=== PATIENT | male | born 1995 | race African-American/Black ===

== ENCOUNTER 2022-02-02 11:51 | Emergency (ER) | payer MEDICAID ==
[~2022-02-02] VITALS: Ht 180.3 cm; Wt 87.0 kg
[2022-02-02 11:59] VITALS: BP 140/60
[2022-02-02] MEDS ORDERED: KETOROLAC 60MG/2ML VIAL IM ONE (13:45)
[2022-02-02] MEDS ORDERED: NAPR-681 MT (14:52)
== END 2022-02-02 15:19 | disposition home or self-care (01) ==
LOC: ER 14:12
DX: M25.562 Pain in left knee (principal); X50.1XXA Overexertion from prolonged static or awkward postures, initial encounter; Y93.89 Activity, other specified; Y92.89 Other specified places as the place of occurrence of the external cause
CPT/HCPCS: 73562; 96372; 99283; J1885

== ENCOUNTER 2022-11-24 12:28 | Emergency (ER) | payer MEDICAID ==
[~2022-11-24] VITALS: Ht 180.3 cm; Wt 82.0 kg
[~2022-11-24 12:28] MED LIST: NAPR-681 MT
[2022-11-24 12:47] VITALS: BP 152/82
[2022-11-24] MEDS ORDERED: CARB15DR EACHEYE (13:38)
[2022-11-24] MEDS ORDERED: VALA100044 MT (13:38)
[2022-11-24] MEDS ORDERED: P50 MT (13:38)
== END 2022-11-24 14:45 | disposition home or self-care (01) ==
LOC: ER 12:28
DX: G51.0 Bell's palsy (principal); R53.1 Weakness; R20.0 Anesthesia of skin
CPT/HCPCS: 99283

== ENCOUNTER 2023-02-20 09:36 | Emergency (ER) | payer MEDICAID ==
[~2023-02-20] VITALS: Ht 182.9 cm; Wt 90.0 kg
[~2023-02-20 09:36] MED LIST changes: +CARB15DR EACHEYE; +P50 MT; +VALA100044 MT
[2023-02-20 09:44] VITALS: BP 126/71
[2023-02-20] MEDS ORDERED: CEPH500C2 MT (12:33)
== END 2023-02-20 12:45 | disposition home or self-care (01) ==
LOC: ER 09:36
DX: S50.861A Insect bite (nonvenomous) of right forearm, initial encounter (principal); W57.XXXA Bitten or stung by nonvenomous insect and other nonvenomous arthropods, initial encounter; Y93.89 Activity, other specified; Y92.89 Other specified places as the place of occurrence of the external cause; Y99.8 Other external cause status
CPT/HCPCS: 99284

== ENCOUNTER 2023-04-15 14:38 | Emergency (ER) | payer MEDICAID ==
[~2023-04-15] VITALS: Ht 182.9 cm; Wt 88.0 kg
[~2023-04-15 14:38] MED LIST changes: +CEPH500C2 MT
[2023-04-15 14:43] VITALS: BP 112/68; TEMP 97.9; O2SAT 100
[2023-04-15 14:45] VITALS: PULSE 76; RESP 18
[2023-04-15] MEDS ORDERED: IBUP-2030 MT (14:55)
[2023-04-15] MEDS ORDERED: CYCL5TAB MT (14:55)
== END 2023-04-15 15:06 | disposition home or self-care (01) ==
LOC: ER 14:38
DX: S30.0XXA Contusion of lower back and pelvis, initial encounter (principal); W11.XXXA Fall on and from ladder, initial encounter; Y93.89 Activity, other specified; Y92.89 Other specified places as the place of occurrence of the external cause; Y99.8 Other external cause status
CPT/HCPCS: 99281

== ENCOUNTER 2023-10-06 09:06 | Emergency (ER) | payer MEDICAID ==
[~2023-10-06] VITALS: Ht 182.9 cm; Wt 86.0 kg
[~2023-10-06 09:06] MED LIST changes: +CYCL5TAB MT; +IBUP-2030 MT
[2023-10-06 09:16] VITALS: BP 130/76; RESP 16; TEMP 98.8; O2SAT 100
[2023-10-06 09:20] VITALS: PULSE 66
[2023-10-06] MEDS ORDERED: SILV20CR13 TP (12:15)
[2023-10-06] MEDS ORDERED: IBUP-2029 PO (12:15)
[2023-10-06] MEDS: SILVER SULFADIAZINE 1% CREAM 25GM TOP ONE (14:52)
== END 2023-10-06 14:54 | disposition home or self-care (01) ==
LOC: ER 09:40
DX: T23.222A Burn of second degree of single left finger (nail) except thumb, initial encounter (principal); T23.322A Burn of third degree of single left finger (nail) except thumb, initial encounter; X08.8XXA Exposure to other specified smoke, fire and flames, initial encounter; Y93.89 Activity, other specified; Y92.89 Other specified places as the place of occurrence of the external cause; Y99.8 Other external cause status
CPT/HCPCS: 16020; 99282